=== PATIENT | female | born 1980 | race Hispanic/Latino ===

== ENCOUNTER 2019-03-29 03:40 | Emergency (ER) | payer OTHER ==
[~2019-03-29] VITALS: Ht 147.3 cm; Wt 59.0 kg
[2019-03-29] MEDS ORDERED: ZOFRAN4 MG PO (05:29)
[2019-03-29] MEDS ORDERED: NORCO 5-325 TA1 EACH PO (05:29)
== END 2019-03-29 05:45 | disposition home or self-care (01) ==
LOC: ED 03:40
DX: N13.2 Hydronephrosis with renal and ureteral calculous obstruction (principal)
CPT/HCPCS: 74176; 80053; 81001; 83690; 84703; 85025; 96374; 96375; 99284-25; J1170; J2405; J7030

== ENCOUNTER 2022-07-02 09:10 | Day surgery (SDC) | payer OTHER ==
[~2022-07-02] VITALS: Ht 147.3 cm; Wt 63.5 kg
[~2022-07-02 09:10] MED LIST: B12 ACTIVE1000 MCG PO; K-TAB ER20 MEQ PO; NORCO 5-325 TA1 EACH PO; OSTERA TABLET1 EACH PO; ZOFRAN4 MG PO
--- NOTE | 2022-07-02 12:20 | NUR ---
07/02/22 1220 Laura,Jany 1203 PT ARRIVED TO PACU ON ON 3L VIA CESAR, VSS. PT ASLEEP.
--- NOTE | 2022-07-06 19:03 | OR ---
[facility] [address], [place] [address] Signed DATE OF OPERATION: 07/02/2022 SURGEON: Lenora Chatman MD PREOPERATIVE DIAGNOSES: 1. Iron deficiency with minimal anemia. 2. Constipation and "hemorrhoids.". POSTOPERATIVE DIAGNOSES: 1. Minimal diverticular changes. 2. Large external hemorrhoid x1. PROCEDURE: Total colonoscopy to cecum. ANESTHESIA: Intravenous sedation, fentanyl 150 mcg and Versed 3 mg. INDICATION: This 41-year-old woman is a patient of Dr. Lafleur and from [place], [place]. She has had complaints of "constipation" for years and now complains of "hemorrhoids." She has an area of anal pain and some itching and occasional pain on defecation, but not often. She has had no gianna blood per rectum. She does have some abdominal pain from time to time. Her hematocrit was noted to be 36.15 with iron binding capacity slightly high at 432. She has no family history of colon cancer or other issues. She is admitted at this time to undergo colonoscopy upon referral from Dr. Lafleur. She understands the risks of bleeding, infection, and perforation related to colonoscopy and wished to proceed. FINDINGS: The prep was excellent. Complete colonoscopy undertaken the cecum without question. She had a few scattered diverticular sigmoid. She had no polyps or colitis. She did have a very large external hemorrhoid. PROCEDURE IN DETAIL: The patient was brought to the endoscopy suite and placed in lateral decubitus position given intravenous sedation to the point of slurred speech and nystagmus with full cardiopulmonary monitoring. Digital rectal examination was undertaken and she has a very large external hemorrhoid Electronically Signed By: LENORA CHATMAN MD 07/06/221902 PATIENT NAME: DOMINGO MILNER OPERATIVE REPORT DATE OF : 78 REPORT #: [id number] PHYSICIAN: LENORA CHATMAN MD PCP: VIKASH LAFLEUR MD REPORT IS CONFIDENTIAL AND NOT TO BE RELEASED WITHOUT AUTHORIZATION [facility] [address], [place] [address] Signed noted. It appeared to be the only hemorrhoid. I saw no evidence of fissure. An Olympus video colonoscope was passed in the rectum and manipulated throughout the colon noting diverticular change of the sigmoid. The scope was ultimately passed to the cecum. Good visualization of the cecum with intubation was noted including the appendiceal orifice, which was normal. The scope was withdrawn from that point and examination throughout showed no sign of abnormality other than scattered diverticula which were small. Retroflexed view showed some hypertrophied anal papilla. Scope was removed and photograph was taken of the external hemorrhoidal area as well. The patient tolerated the procedure well. CONCLUDING DIAGNOSES: 1. Large external hemorrhoid. 2. Minimal diverticular change in sigmoid. PLAN: We will recommend high-fiber diet and/or fiber supplement, Citrucel one scoop p.o. daily. We will see her back in the office in four six weeks; consideration will be made for external hemorrhoidectomy depending on her preference. MD JOCY Caceres/MELISSA /[id number] cc: Dr. Vikash Lafleur Copies: ~ Electronically Signed By: LENORA CHATMAN MD 07/06/22 1903 PATIENT NAME: DOMINGO MILNER OPERATIVE REPORT DATE OF : [birth year] REPORT #: [id number] PHYSICIAN: LENORA CHATMAN MD PCP: VIKASH LAFLEUR MD REPORT IS CONFIDENTIAL AND NOT TO BE RELEASED WITHOUT AUTHORIZATION
== END 2022-07-02 13:00 | disposition home or self-care (01) ==
LOC: OPS 09:10 → DS 09:17 → OPS 11:00 → DS 11:30 → OPS 13:00 → DS 13:15
PROVIDERS: ATTEND Surgery
PROC: 0DJD8ZZ Inspection of Lower Intestinal Tract, Via Natural or Artificial Opening Endoscopic (ICD-10-PCS; principal; 2022-07-02 11:00)
DX: K64.4 Residual hemorrhoidal skin tags (principal); K57.30 Diverticulosis of large intestine without perforation or abscess without bleeding; K59.00 Constipation, unspecified; E61.1 Iron deficiency; D64.9 Anemia, unspecified
CPT/HCPCS: 84703; 99153; G0500; J2250; J3010; J7121

== ENCOUNTER 2024-07-24 16:43 | Observation (INO) | payer BC ==
[~2024-07-24] VITALS: Ht 147.3 cm; Wt 58.7 kg
[~2024-07-24 16:43] MED LIST changes: +IRON18 MG PO
[2024-07-24 18:11] LABS: BASOPHILS 0.7 % (0-2); EOSINOPHILS 0.6 % (0-6); HEMATOCRIT 36.4 % (35.0-50.0); HEMOGLOBIN 11.8 g/dL (12.0-18.0); LYMPHOCYTES 13.9 % (24-44); MCH 25.9 (27-36); MCHC 32.3 g/dl (30-36); MCV 80.1 fl (81-99); NEUTROPHILS 79.8 % (39-80); PLATELET COUNT 293 K/uL (140-440); RBC 4.55 M/ul (4.3-5.7); RDW 15.9 (10.5-15.0)
[2024-07-24 18:14] LABS: BILIRUBIN, URINE NEGATIVE (negative); BLOOD/HGB, URINE TRACE-I (Negative); KETONE, URINE >=80 (Negative); LEUK ESTERASE, URINE NEGATIVE (negative); NITRITE, URINE NEGATIVE (negative)
[2024-07-24 18:25] LABS: ALBUMIN 3.3 g/dL (3.4-5.0); ALBUMIN/GLOBULIN RATIO 0.85 (1.1-2.4); ANION GAP 13.3 (7-21); BILIRUBIN, TOTAL 0.2 ng/dL (0.2-1.0); BUN/CREATININE RATIO 16.41 (6.0-28.6); CALCIUM 8.8 mg/dL (8.5-10.1); CREATININE, SERUM 0.67 mg/dL (0.55-1.02); POTASSIUM 3.3 mmol/L (3.5-5.1); PROTEIN, TOTAL 7.2 g/dL (6.4-8.2)
[2024-07-24 18:27] LABS: CRYSTALS, URINE NONE SEEN (0-1+); EPITHELIAL CELLS, URINE SQUAMOUS 2+ /lpf (0-1+)
[2024-07-24 18:28] LABS: BACTERIA, URINE RARE /hpf (negative); CASTS, URINE NONE SEEN \\lpf; COLLECTION TYPE, URINE CLEAN CATCH; REFLEX CULTURE, URINE No (No)
[2024-07-24] MEDS ORDERED: KETOROLAC TROMETHAMINE 15 MG/ML VIAL IV ONE (19:45)
[2024-07-24] MEDS ORDERED: SODIUM CHLORIDE 0.9% 500 ML IV PRN (19:45)
[2024-07-24] MEDS ORDERED: ondansetron HCL 4 MG/2 ML VIAL IV ONE (19:45)
[2024-07-24] MEDS ORDERED: MORPHINE SULFATE 4 MG/ML VIAL IV ONE (19:45)
[2024-07-24] MEDS ORDERED: CEFTRIAXONE/SODIUM CHLORIDE 2 GM/100 ML PIGGYBACK IV ONE (21:15)
[2024-07-24] MEDS ORDERED: MORPHINE SULFATE 4 MG/ML VIAL IV PRN (21:45)
[2024-07-24] MEDS ORDERED: ondansetron HCL 4 MG/2 ML VIAL IV PRN (21:45)
[2024-07-24] MEDS ORDERED: DEXTROSE 5% - LACTATED RINGERS 1,000 ML IV SCH (21:45)
[2024-07-24] MEDS ORDERED: ACETAMINOPHEN 325 MG TAB PO PRN (21:45)
--- NOTE | 2024-07-24 22:35 | NUR ---
pt ARRIVED TO MS FLOOR FROM ED STRETCHER WITH ED RN NICHOLAS. pt AWAKE AND ORIENTED X4, VSS. pt EMOTIONAL REGARDING HOSPITALIZATION AND BEING ALONE-pt'S APPROX 4 MONTHS AGO, pt JEHOVAH'S WITNESS AND WISHES TO SPEAK TO PASTORAL CARE TOMORROW IF POSSIBLE, PRIMARY RN DODIE AWARE OF pt WISHES. ADMISSION COMPLETED AND pt UP SBA TO VOID ND BACK IN BED. IV SITE WNL, FLUIDS INFUSING DIRECTED. pt ORIENTED TO ROOM AND POC. pt HAS PERSONAL AND WORK CELL PHONE AT BEDSIDE AND CHARGING WITH HOSPITAL CHARGERS AND HAS DRIVING LICENSE IN pt ROOM LOCK BOX. NO FURTHER NEEDS, CALL LIGHT IN REACH.
[2024-07-24 22:44] VITALS: BP 162/81
--- NOTE | 2024-07-24 23:43 | NUR ---
ADMISSION ASSESSMENT COMPLETE. PT REPORTS RLQ PAIN 01/03. PRN FOR PAIN ADMIN PER EMAR. IVF INFUSING WNL. BOWEL TONES ACTIVE. ABD SOFT. PT DENIES NAUSEA. DISCUSSED NPO STATUS. PT VERBALIZES UNDERSTANDING. PT ORIENTED TO ROOM AND NURSE CALL LIGHT. PT DENIES QUESTIONS OR CONCERNS. CALL LIGHT IN REACH.
[2024-07-25] VITALS (13 sets, daily range): BP systolic 107–138; BP diastolic 52–71
--- NOTE | 2024-07-25 00:15 | NUR ---
IV PUMP ALARMING. ISSUE RESOLVED. PT REPORTS NAUSEA WITH NO EMESIS. PRN FOR N/V ADMIN PER EMAR. PT REMINDED OF NPO STATUS. ORAL CARE SUPPLIES PROVIDED. NO FURTHER NEEDS.
--- NOTE | 2024-07-25 01:24 | NUR ---
IV PUMP ALARMING. ISSUE RESOLVED. PT WITH 500 ML EMESIS. REPORTS FEELING BETTER AFTER EMESIS. UP TO SINK TO BRUSH TEETH. BACK TO BED, JESSICA WELL. PT TALKING TO SISTER ON THE PHONE. NO FURTHER NEEDS.
--- NOTE | 2024-07-25 04:08 | NUR ---
PT LYING IN BED RESTING WITH EYES CLOSED. RESPIRATIONS EVEN. CALL LIGHT IN REACH.
[2024-07-25 05:23] LABS: BASOPHILS 0.6 % (0-2); EOSINOPHILS 0.2 % (0-6); HEMATOCRIT 34.2 % (35.0-50.0); HEMOGLOBIN 11.3 g/dL (12.0-18.0); MCHC 32.9 g/dl (30-36); MCV 78.9 fl (81-99); MONOCYTES 5.4 % (0-12); NEUTROPHILS 78.8 % (39-80); PLATELET COUNT 277 K/uL (140-440); RBC 4.34 M/ul (4.3-5.7); RDW 15.8 (10.5-15.0)
--- NOTE | 2024-07-25 05:28 | NUR ---
LAB IN ROOM FOR MORNING DRAW. VS AND I&O OBTAINED. PT DENIES PAIN OR NAUSEA AT THIS TIME. CALL LIGHT IN REACH.
[2024-07-25 05:39] LABS: ALBUMIN 2.8 g/dL (3.4-5.0); ALBUMIN/GLOBULIN RATIO 0.76 (1.1-2.4); ANION GAP 10.3 (7-21); BILIRUBIN, TOTAL 0.3 ng/dL (0.2-1.0); BUN/CREATININE RATIO 9.52 (6.0-28.6); CALCIUM 8.4 mg/dL (8.5-10.1); CREATININE, SERUM 0.63 mg/dL (0.55-1.02); MAGNESIUM 1.9 mg/dL (1.8-2.4); POTASSIUM 3.3 mmol/L (3.5-5.1); PROTEIN, TOTAL 6.5 g/dL (6.4-8.2)
[2024-07-25] MEDS ORDERED: POTASSIUM CHLORIDE 40 MEQ,LIDOCAINE HCL 1% 40 MG in DEXTROSE 5% 250 ML IV ONE (06:15)
[2024-07-25] MEDS ORDERED: IBUPROFEN 600 MG TAB PO PRN (06:45)
[2024-07-25] MEDS ORDERED: DEXTROSE 5% - LACTATED RINGERS 1,000 ML IV SCH (06:45)
[2024-07-25] MEDS ORDERED: ondansetron HCL 4 MG/2 ML VIAL IV PRN ×2 (06:45→10:15)
[2024-07-25] MEDS ORDERED: PROCHLORPERAZINE EDISYLATE 10 MG/2 ML VIAL IV PRN ×2 (06:45→10:15)
[2024-07-25] MEDS ORDERED: HYDROmorphone HCL 1 MG/ML SYR IV PRN (06:45)
[2024-07-25] MEDS ORDERED: OXYCODONE HCL 5 MG TAB PO PRN (06:45)
[2024-07-25] MEDS ORDERED: ACETAMINOPHEN 325 MG TAB PO PRN (06:45)
--- NOTE | 2024-07-25 07:48 | NUR ---
PT RESTING IN BED, ON THE PHONE WITH FAMILY. IV FLUIDS INFUSING, DENIES ANY NEEDS AT THIS TIME. REPORTS PAIN CONTROLLED AT 3/10. REMAINS NPO AT THIS TIME. ALL PT CARE NEEDS MET, WILL CONTINUE TO MONITOR.
--- NOTE | 2024-07-25 08:45 | NUR ---
PT READY FOR SURGERY, IV ANTIBIOTICS GIVEN TO RN TO TAKE WITH TO SURGERY.
--- NOTE | 2024-07-25 08:47 | NUR ---
Patient was awake upon entering the room. RN was already in room doing bathroom assist. RN asked for help with linen change and patient's pre-surgery HIBA cleanse wipes. Patient is NPO.
[2024-07-25] MEDS ORDERED: MIDAZOLAM HCL 2 MG/2 ML VIAL ONE (08:59)
[2024-07-25] MEDS ORDERED: LACTATED RINGER'S 1,000 ML IV ONE (08:59)
[2024-07-25] MEDS ORDERED: METOCLOPRAMIDE HCL 10 MG/2 ML SDV ONE (08:59)
[2024-07-25] MEDS ORDERED: KETOROLAC TROMETHAMINE 30 MG/ML VIAL ONE (08:59)
[2024-07-25] MEDS ORDERED: SUCCINYLCHOLINE IN 0.9% NACL 200 MG/10 ML SYRINGE ONE (08:59)
[2024-07-25] MEDS ORDERED: SUGAMMADEX SODIUM 200 MG/2 ML ML ONE (08:59)
[2024-07-25] MEDS ORDERED: fentaNYL citrate 100 MCG/2 ML VIAL ONE (08:59)
[2024-07-25] MEDS ORDERED: ROCURONIUM BROMIDE 50 MG/5 ML SYR ONE (08:59)
[2024-07-25] MEDS ORDERED: propofoL 200 MG/20 ML VIAL ONE (08:59)
[2024-07-25] MEDS ORDERED: FAMOTIDINE 20 MG/ 2 ML VIAL ONE (08:59)
[2024-07-25] MEDS ORDERED: DEXAMETHASONE SOD PHOS 4 MG/ML VIAL ONE (08:59)
[2024-07-25] MEDS ORDERED: ondansetron HCL 4 MG/2 ML VIAL ONE (08:59)
[2024-07-25] MEDS ORDERED: CEFTRIAXONE/SODIUM CHLORIDE 2 GM/100 ML PIGGYBACK IV SCH (09:00)
[2024-07-25] MEDS ORDERED: ENOXAPARIN SODIUM 40 MG/0.4 ML SYR SUB-Q SCH (09:00)
[2024-07-25] MEDS ORDERED: PANTOPRAZOLE SODIUM 40 MG/10 ML VIAL IV SCH (09:00)
[2024-07-25] MEDS ORDERED: LIDOCAINE HCL 4% 5 ML AMP ONE (09:00)
[2024-07-25] MEDS ORDERED: CEFTRIAXONE/SODIUM CHLORIDE 1 GM/100 ML PIGGYBACK IV SCH (09:00)
--- NOTE | 2024-07-25 09:00 | NUR ---
Attempted to see pt, she has gone to surgery.
[2024-07-25] MEDS ORDERED: BUPIVACAINE HCL 0.25% 50 ML MDV ONE (09:05)
[2024-07-25] MEDS ORDERED: LIDOCAINE 1% W/ EPI 1:200,000 30 ML SDV ONE (09:05)
[2024-07-25] MEDS ORDERED: SEVOFLURANE 250 ML BTL INH ONE (09:11)
--- NOTE | 2024-07-25 09:52 | NUR ---
RECEIVED REFERRAL FOR SPIRITUAL CARE CONSULTATION. PT GONE FOR PROCEDURE AT TIME OF VISIT. PROVIDED PRAYER. WILL FOLLOW CIRCUMSTANCES ALLOW.
[2024-07-25] MEDS ORDERED: NALOXONE HCL 0.4 MG SYR IV PRN (10:15)
[2024-07-25] MEDS ORDERED: MORPHINE SULFATE 10 MG/ML VIAL IV PRN (10:15)
[2024-07-25] MEDS ORDERED: IBLOOD GLUCOSE TEST STRIP 1 EA TEST VI PRN (10:15)
[2024-07-25] MEDS ORDERED: fentaNYL citrate 50 MCG/ML SDV IV PRN (10:15)
[2024-07-25] MEDS ORDERED: METOCLOPRAMIDE HCL 10 MG/2 ML SDV IV PRN (10:15)
[2024-07-25] MEDS ORDERED: droPERidol 5 MG/2 ML VIAL IV PRN (10:15)
--- NOTE | 2024-07-25 10:35 | NUR ---
07/25/24 Sven4 Qing Rees 1029-PATIENT ARRIVED TO PACU ON 10L MASK NONAROUSABLE ORAL AIRWAY IN PLACE. LENORA CROWE DOING JAW THRUST RN RESUMES. RR EVEN. SR HR 80'S 2 LAP SITES TO ABDOMEN CDI. IVF INFUSING.
--- NOTE | 2024-07-25 10:43 | CONS ---
[facility] [address], [place] [address] Signed DATE OF CONSULTATION: 07/25/2024 CHIEF COMPLAINT: Right lower quadrant abdominal pain. HISTORY OF PRESENT ILLNESS: Gilda is a 43-year-old female, who presents with 1-day history of right lower quadrant abdominal pain. She came to the emergency room with the help of her friend. She was tender in the right lower quadrant with stable vital signs. Initially, the white count was elevated at 17,000. This morning, it is down to 8. Her CT scan of the abdomen and pelvis shows a mildly inflamed appendix and some mild periappendiceal fat stranding. I have been asked to admit her as a general surgeon overnight. She has received IV fluids along with Rocephin and Flagyl and pain control. She is doing well this morning, was sound asleep. PAST MEDICAL HISTORY: None. PAST SURGICAL HISTORY: C-sections x3. SOCIAL HISTORY: He does not smoke or drink. She goes to the [facility]. Her was an alcoholic with high blood pressure and she thinks he passed from heart attack just a few months ago. Her banquet houseperson is her daughter, Deepti at [phone]. 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 She has three children total. FAMILY HISTORY: None. REVIEW OF SYSTEMS: She had 10 systems reviewed and she talked about her C-sections. ALLERGIES: None. MEDICATIONS: None. PHYSICAL EXAMINATION: VITAL SIGNS: Her blood pressure is 118/68, heart rate is 84, respiratory rate is 14, temperature is 97.6. She is 98% on room air. She is 4 feet 10 inches tall at 58 kg with a body mass index of 27. Electronically Signed By: WILBERT LONGO MD 07/25/24 1043 PATIENT NAME: GILDA MILNER CONSULTATION DATE OF : 79 REPORT #: [id number] PHYSICIAN: WILBERT LONGO MD PCP: RYAN SERRANO MD REPORT IS CONFIDENTIAL AND NOT TO BE RELEASED WITHOUT AUTHORIZATION [facility] [address], [place] [address] Signed GENERAL: Gilda is a 43-year-old lady lying supine in her hospital bed. She was sound asleep. She was easily awaken. She is alert, awake, and interactive. She is not systemically ill or toxic. LUNGS: Clear to auscultation bilaterally. HEART: Regular rate and rhythm without murmurs. ABDOMEN: Soft and flat with some mild tenderness in the right lower quadrant. LABORATORY DATA: Her white blood count was 17, is down to 8.1; hemoglobin is 11.3 with a mean cell volume of 78. Neutrophils are 78. Potassium 3.3. Liver function tests negative. Albumin is 2.8, creatinine 0.6. Urinalysis showed greater than 80 ketones. Her beta-hCG is negative. RADIOGRAPHIC STUDIES: CT scan of the abdomen and pelvis shows mildly inflamed appendix and some mild periappendiceal fat stranding. ASSESSMENT AND PLAN: Gilda is a 43-year-old female, who presents with early acute appendicitis. She has been admitted overnight and given IV fluids and antibiotics. We will correct the hypokalemia this morning. I brought with me a brochure on the appendix. She does speak and read Greenlandic well. We went through it page by page. She understands the location and function of the appendix. We have discussed laparoscopic versus open appendectomy. She understands expected intraop and postop course. There is risk including, but not limited to bleeding, infection, scarring, change in contour of the skin, damage to bowel, appendiceal stump leak, postoperative intra-abdominal abscess, incisional hernias and other unforeseen comorbidities. She has expressed understanding and would like to proceed with surgery later this morning. Wilbert Longo MD ALB/MODL /[id number] cc: Wilbert Longo MD [facility] Electronically Signed By: WILBERT LONGO MD 07/25/24 1043 PATIENT NAME: GILDA MILNER CONSULTATION DATE OF : 78 REPORT #: [id number] PHYSICIAN: WILBERT LONGO MD PCP: RYAN SERRANO MD REPORT IS CONFIDENTIAL AND NOT TO BE RELEASED WITHOUT AUTHORIZATION [facility] [address] [place] [address] Signed Copies: WILBERT LONGO MD ~ Electronically Signed By: WILBERT LONGO MD 07/25/24 1043 PATIENT NAME: GILDA MILNER CONSULTATION DATE OF : 78 REPORT #: [id number] PHYSICIAN: WILBERT LONGO MD PCP: RYAN SERRANO MD REPORT IS CONFIDENTIAL AND NOT TO BE RELEASED WITHOUT AUTHORIZATION
--- NOTE | 2024-07-25 11:22 | NUR ---
UR CLINICAL REVIEW: MCG-MEET OBS CRITERIA FOR APPENDICITIS SELF PAY OBS 07/24/24 @ 2142 ORDER MATCHES REG NO AUTH REQUIRED PATIENT IS SELF PAY DISCHARGE TO HOME WHEN STABLE 07/26/24
--- NOTE | 2024-07-25 11:29 | NUR ---
PATIENT RETURNED FROM SURGERY AT 1125. PATIENT IS SLEEPY AND WEARING 2L OF O2 FOR SATS OF 99%. X3 SURGICAL LAP SITES ARE INTACT WITH ASHLEIGH, GUAZE AND TAPE, NO DRAINAGE NOTED. ICE PACE TO ABDOMEN. PATIENT DENIES NEEDS AT THIS TIME.
--- NOTE | 2024-07-25 12:05 | NUR ---
Patient was returned from surgery.They continue to be drowsy but responsive. Vital signs were taken and given to RN.
[2024-07-25] MEDS ORDERED: OXYCODONE HCL5 MG PO (12:07)
[2024-07-25] MEDS ORDERED: TYLENOL325 M1 PO (12:08)
--- NOTE | 2024-07-25 14:27 | NUR ---
VISITED AT PT REQUEST. PT EXPRESSED SADNESS, FEELING OF ALONENESS BECAUSE OF RECENT LOSS OF , INDICATED SIGNIFICANT SUPPORT FROM FRIENDS, EXPRESSED STRONG MARCIANO IMPORTANT SOURCE OF STRENGTH. LOGISTICS DIRECTOR PROVIDED SUPPORTIVE PRESENCE, EXPLORED BELIEFS, PROVIDED ANTICIPATORY GUIDANCE, HOSPITALITY, PRAYER. PT EXPRESSED GRATITUDE, HOPE.
--- NOTE | 2024-07-25 14:30 | NUR ---
Patient was resting in bed and reported feeling drowsy. Internal Control Analyst entered the room to visit. No cares were asked for.
--- NOTE | 2024-07-25 14:42 | NUR ---
PT RESTING IN BED, VS STALBE. DRESSING REMAIN CDI. PAIN 01/03, PRN TYLENOL GIVEN - SEE NOV. PT STATES SHE IS HUNGRY, GIVEN PUDDING, ADVANCED DINNER TO REGULAR, ASSISTED IN HELPING ORDER FROM MENU. PT STATES SHE OWULD LIKE TO GO HOME TONIGHT, WILL SEE HOW SHE DOES AFTER DINNER. AND WILL HELP GET HER OUT THIS EVENING.
--- NOTE | 2024-07-25 15:00 | NUR ---
Spoke with Gilda. She lives in [place] with her 3 children from 16 to 23. She states her spouse 4 months ago. She works for [employer]. She does have [employer] of [place], it is listed as self pay. She states he adult children will assist her with household task, driving, cooking, shopping. She denies needs. She states they do at times use a food panty in [place]. She uses the [place] [facility] and their pharmacy. Pt plans on dc to home with her family when she is cleared medically. She states she is over income for food stamps.
--- NOTE | 2024-07-25 15:49 | NUR ---
PATIENT UP TO BATHROOM TO VOID 800ML. NEW SHRUTHI PAD AND UNDERWEAR. PATIENT IS ON ROOM AIR, SALINE LOCKED, AND IS AMBULATING AROUND IN THE ROOM. ICE PACK GIVEN. PATIENT DENIES OTHER NEEDS AT THIS TIME.
--- NOTE | 2024-07-25 16:39 | NUR ---
Patient was resting in bed on their phone. They reported feeling no pain. No cares were asked for.
--- NOTE | 2024-07-25 16:48 | NUR ---
PT STATES SHE IS HAVING 2/10 PAIN STILL. SHE WOULD LIKE TO EAT DINNER AND STILL DISCHARGE HOME TONIGHT. DR. VICTORIA NOTIFIED, NO OTHER ORDERS. PT WOULD LIKE TO TAKE PRESCRIPTIONS ON DISCHARGE AND WILL GET THOSE FILLED. LAP SITES X3 CLEAN, THE UPPER RIGHT HAS SLIGHT SHADOWING TO BANDAGE. PT DENIES NAUSEA.
--- NOTE | 2024-07-25 19:08 | NUR ---
Patient dressed and belongings gathered together. Currently waiting for their ride after DC.
--- NOTE | 2024-07-25 19:25 | NUR ---
BRIEF UPDATE PROVIDED FROM PRIMARY RN AND GIZZARD PULLER. PER REPORT, pt ALREADY HAD IV DC'D AND RECEIVED ALL DC PAPERWORK/SCRIPT. pt ONLY HERE WAITING ON RIDE FROM FAMILY TO TAKE pt HOME. DOBIE WORKER IN ROOM COLLECTING ADDITIONAL SET OF VS TO ENSURE MOST RECENT SET WITHIN 1 HR OF pt'S RIDE HOME. VS REMAIN STABLE. DOBIE WORKER REPORTS pt FEELS NAUSEOUS, DAYSHIFT ALREADY DC'D IV-TELEPHONE ORDER READ BACK FROM DR VICTORIA FOR ONE TIME DOSE SL ZOFRAN 4MG NOW-SEE EMAR. pt TOLERATING WELL. RIDE HERE AND WAITING AT FRONT OF HOSPITAL. pt WHEELED TO FRONT OF HOSPITAL TO MAIN ENTRANCE AND ASSISTED INTO PERSONAL VEHICLE-pt's SON AND FAMILY/FRIENDS PRESENT TO TAKE pt HOME. pt ASKING ABOUT PAPER FOR WORK RELEASE, INSTRUCTED TO SHOW BOSS DC PAPER WORK AND IF NOT SUFFICIENT THEN TO CALL DR ALEXANDRE OFFICE IN AM AND ASK FOR ADDITIONAL PAPERWORK, pt VERBALIZED UNDERSTANDING. pt ASSISTED INTO FRONT PASSENGER VEHICLE AND TAKEN HOME BY FAMILY.
[2024-07-25] MEDS ORDERED: ondansetron HCL 4 MG TAB PO ONE (19:30)
[2024-07-25] MEDS ORDERED: ONDANSETRON 4 MG TAB ODT SL ONE (19:30)
--- NOTE | 2024-07-26 06:00 | OR ---
[facility] [address], [place] [address] Signed DATE OF OPERATION: 07/25/2024 SURGEON: Wilbert Victoria MD PREOPERATIVE DIAGNOSIS: Acute inflamed appendicitis. POSTOPERATIVE DIAGNOSIS: Acute inflamed appendicitis. PROCEDURE: Laparoscopic appendectomy. ESTIMATED BLOOD LOSS: None. FINDINGS: Gilda Sidhu indeed had acute inflamed uncomplicated appendicitis. INDICATIONS: Gilda Sidhu is a 43-year-old female, who had 1-day history of right lower quadrant abdominal pain. She came to the emergency room for evaluation. Her vital signs were stable. White count was initially elevated. CT scan confirmed her mildly inflamed appendix and some mild periappendiceal fat stranding. I have been asked to admit her overnight as a local general surgeon. She received IV fluids, Rocephin, Flagyl and some potassium. I met with Gilda Sidhu this morning and I brought with me a brochure. We went over the location and function of the appendix. We discussed laparoscopic versus open appendectomy. We reviewed the expected intraop and postop course. There is risk including, but not limited to bleeding, infection, scarring, change in contour of the skin, damage to bowel, appendiceal stump leak, postoperative intra-abdominal abscess, incisional hernias and other unforeseen comorbidities. She had expressed understanding and wished to proceed. PROCEDURE IN DETAIL: Gilda Sidhu was taken into the operating room and placed in the supine position under general endotracheal tube anesthesia. She was on preoperative antibiotics along with subcutaneous Lovenox. SCDs were utilized. Felder catheter was inserted with return of clear yellow urine without difficulty. Her abdomen was prepped and draped in the usual sterile fashion. Our trocars were placed in their usual standard positions under direct visualization of the camera without difficulty. The appendix was grasped and elevated Electronically Signed By: WILBERT VICTORIA MD 07/26/24 0600 PATIENT NAME: GILDA MILNER OPERATIVE REPORT DATE OF : 78 REPORT #: [id number] PHYSICIAN: WILBERT VICTROIA MD PCP: RYAN SERRANO MD REPORT IS CONFIDENTIAL AND NOT TO BE RELEASED WITHOUT AUTHORIZATION [facility] [address], [place] [address] Signed without difficulty. We cleared off the base of the appendix with the help of cautery and we divided the appendix and the cecum with our linear stapler. Hemostasis was excellent. We used a vascular load to divide the mesoappendix. Again, hemostasis was excellent. After this, we put the appendix into an EndoCatch bag and we removed it through the right subcostal trocar site. We used our laparoscopic suturing device to pass 0-Vicryl suture on either side of the fascia of the right subcostal trocar site. This was tied down to close this fascia primarily. After this, all the gas was allowed to escape and the remaining two trocars were removed. We closed the fascia of the supraumbilical trocar site with interrupted [id number] and simple 0-Vicryl sutures. Local anesthetic was copiously injected into all three trocar sites. Each trocar site was irrigated and suctioned out until clear. We closed the skin and dermis of each trocar site with interrupted 3-0 subcuticular Monocryl sutures. We used trae to bring the skin back together on the suprapubic trocar site and the supraumbilical trocar site. Dry gauze and tape was then applied to all three incisions. Her Felder catheter was removed without difficulty. She was awakened from anesthesia, extubated in the OR, and taken to the recovery room in stable condition. Wilbert Victoria MD ALB/MODL /[id number] cc: Wilbert Victoria MD [facility] Copies: WILBERT VICTORIA MD ~ Electronically Signed By: WILBERT VICTORIA MD 07/26/24 0600 PATIENT NAME: GILDA MILNER MARIA OPERATIVE REPORT DATE OF : 78 REPORT #: [id number] PHYSICIAN: WILBERT VICTORIA MD PCP: RYAN SERRANO MD REPORT IS CONFIDENTIAL AND NOT TO BE RELEASED WITHOUT AUTHORIZATION
[2024-07-26] MEDS ORDERED: PANTOPRAZOLE SODIUM 40 MG TABEC PO SCH (09:00)
--- NOTE | 2024-07-27 18:18 | PATH ---
[facility] [address] [place], [place] [address] Signed SPECIMEN(S): A APPENDIX SPECIMEN SOURCE: A. APPENDIX CLINICAL HISTORY: Appendicitis FINAL PATHOLOGIC DIAGNOSIS: Appendix, appendectomy: - Vermiform appendix with luminal fibrosclerosis. - Focal acute appendicitis. JVR:slc MICROSCOPIC EXAMINATION: Histologic sections of all submitted blocks are examined by light microscopy. These findings, together with the gross examination, support the pathologic diagnosis. GROSS DESCRIPTION: The specimen, labeled and designated "Carlos Harris, appendix per requisition," is received in formalin and consists of Specimen: Appendix with mesoappendix. Dimensions: 9.6 x 2 x 0.6 cm. Serosa: Deluna-pink smooth with areas of pinpoint hemorrhage and dilated vasculature. Defect: Not grossly identified. Inking: Staple line is inked Blue. Mucosa: Pinpoint lumen without discrete masses or lesions. Fecalith: Not grossly identified. Additional: None. Cash Management Associate sections are submitted in (A1). AA (under the direct supervision of a pathologist) The Gross Description was prepared using a voice recognition system. The report was reviewed for accuracy; however, sound-alike word errors, addition and/or deletions may occur. If there is any question about this report, please contact Client Services. PERFORMING LABORATORY: Technical component was performed by [email or web address], [address] [place] [id number] (CLIA# [id number]). Professional interpretation was PATIENT NAME: ANNIADOMINGORUMA PATHOLOGY DATE OF : [birth year] REPORT #: [id number] PHYSICIAN: [facility] PCP: RYAN SERRANO MD REPORT IS CONFIDENTIAL AND NOT TO BE RELEASED WITHOUT AUTHORIZATION [address] [place], [place] [address] Signed performed by [facility] [address] [address] (CLIA#: [id number]). Diagnostician: Jay Busby MD Pathologist Electronically Signed 07/27/2024 Copies: ~ PATIENT NAME: DOMINGO HARRIS PATHOLOGY DATE OF : 78 REPORT #: [id number] PHYSICIAN: [facility] PCP: RYAN SERRANO MD REPORT IS CONFIDENTIAL AND NOT TO BE RELEASED WITHOUT AUTHORIZATION
== END 2024-07-25 19:40 | disposition home or self-care (01) ==
LOC: ED 16:43 → MS 21:42
PROVIDERS: Emergency Medicine; Family Medicine; ADMIT Colon & Rectal Surgery; ATTEND Colon & Rectal Surgery
PROC: 0DTJ4ZZ Resection of Appendix, Percutaneous Endoscopic Approach (ICD-10-PCS; principal; 2024-07-25 10:00)
DX: K35.80 Unspecified acute appendicitis (principal); K38.8 Other specified diseases of appendix
CPT/HCPCS: 00840; 36415; 74176; 80053; 81001; 83690; 83735; 84703; 85025; 96365; 96372; 96374; 96375; 96376; 99285-25; A9270; G0378; J0330; J0696; J1100; J1650; J1885; J2250; J2270; J2405; J2470; J2704; J2765; J3010; J3480; J3490; J7040; J7060; J7121